=== PATIENT | female | born 1960 ===

== ENCOUNTER 2025-01-26 15:20 | Emergency (ER) | payer MEDICARE | END 2025-01-26 16:12 | disposition home or self-care (01) | LOC: DL.ED 15:20 | DX: K04.7 Periapical abscess without sinus (principal); F17.200 Nicotine dependence, unspecified, uncomplicated; Z88.8 Allergy status to other drugs, medicaments and biological substances; Z88.2 Allergy status to sulfonamides; Z88.5 Allergy status to narcotic agent; Z79.899 Other long term (current) drug therapy | CPT/HCPCS: 99282 ==